=== PATIENT | female | born 1980 | race Caucasian/White ===

== ENCOUNTER 2017-06-20 14:40 | Emergency (ER) | payer BC ==
[2017-06-20 14:59] VITALS: BP 156/91; PULSE 87; RESP 16; TEMP 99
--- NOTE | 2017-06-20 15:44 | ED ---
General Adult HPI - General Chief complaint: Skin/Abscess/Foreign Body Stated complaint: rash on back Time Seen by Provider: 06/20/17 15:28 Source: patient, RN notes reviewed Mode of arrival: ambulatory Limitations: no limitations - History of Present Illness Initial comments: Patient's a 37-year-old female who presents emergency room today with chief complaint of a rash to the left side of her back that began 3 days ago. She states it is very painful and tender. She states it's worse at night when she is trying to sleep. She states she has tried some Benadryl which made her drowsy but doesn't seem to have helped with the rash. Patient does not that she feels that there is some swelling to the lymph nodes in her axilla bilaterally. Patient admits that rash seems to be wrapping around the left side of the ribs. Denies any other complaints. Patient denies any recent fever , chills, shortness of breath, chest pain, back pain, abdominal pain, nausea or vomiting, numbness or tingling, dysuria or hematuria, constipation or diarrhea, headaches or visual changes, or any other complaints. - Related Data Home Medications Medication Instructions Recorded Confirmed Cyclobenzaprine [Flexeril] 10 mg PO BID PRN 05/11/15 05/11/15 Ibuprofen [Motrin] 800 mg PO TID PRN 05/11/15 05/11/15 Previous Rx's Medication Instructions Recorded Diazepam [Valium] 5 mg PO TID #10 tab 05/11/15 HYDROcodone/APAP 5-325MG [Axtell 1 tab PO Q6HR PRN #30 tab 05/11/15 5-325] Hydrocodone/Acetaminophen [Axtell 1 each PO Q6HR PRN #12 tab 06/20/17 5-325] predniSONE 60 mg PO DAILY 5 Days tab 06/20/17 valACYclovir HCL [Valtrex] 1,000 mg PO TID #21 tablet 06/20/17 Allergies Allergy/AdvReac Type Severity Reaction Status Date / Time latex Allergy Swelling Verified 06/20/17 14:59 naproxen Allergy Anaphylaxis Verified 06/20/17 14:59 Review of Systems ROS Statement: Those systems with pertinent positive or pertinent negative responses have been documented in the HPI. ROS Other: All systems not noted in ROS Statement are negative. Past Medical History Past Medical History: No Reported History History of Any Multi-Drug Resistant Organisms: None Reported Past Surgical History: Orthopedic Surgery, Tubal Ligation Additional Past Surgical History / Comment(s): knee and neck surgery Past Psychological History: No Psychological Hx Reported Smoking Status: Current every day smoker Past Alcohol Use History: None Reported Past Drug Use History: None Reported General Exam - General Exam Comments Initial Comments: General: The patient is awake and alert, in no distress, and does not appear acutely ill. Eye: Pupils are equal, round and reactive to light, extra-ocular movements are intact. No nystagmus. There is normal conjunctiva bilaterally. No signs of icterus. Ears, nose, mouth and throat: There are moist mucous membranes and no oral lesions. Neck: The neck is supple, there is no tenderness or JVD. Cardiovascular: There is a regular rate and rhythm. No murmur, rub or gallop is appreciated. Respiratory: Lungs are clear to auscultation, respirations are non-labored, breath sounds are equal. No wheezes, stridor, rales, or rhonchi. Musculoskeletal: Normal ROM, no tenderness. Strength 5/5. Sensation intact. Pulses equal bilaterally 2+. Neurological: A&O x 3. CN II-XII intact, There are no obvious motor or sensory deficits. Coordination appears grossly intact. Speech is normal. Skin: Patient does have red raised rash beginning on the left side of the back wrapping around left side of the ribs. The areas are red and are tender on palpation. Psychiatric: Cooperative, appropriate mood & affect, normal judgment. Limitations: no limitations Course Vital Signs 06/20/17 14:57 Temperature 99.0 F Pulse Rate 87 Respiratory 16 Rate Blood Pressure 156/91 O2 Sat by Pulse 98 Oximetry Medical Decision Making - Medical Decision Making Vitals are stable here the emergency room. Was discussed with patient about possible shingles. Patient will be treated with anti-viral's and also advised use Benadryl if there is a component of ALLERGIC reaction. Patient will be placed on steroids. Patient denies follow-up the family doctor return if symptoms increase or worsen or she states understanding and is in agreement. Disposition Clinical Impression: Herpes zoster Disposition: HOME SELF-CARE Condition: Good Instructions: Shingles (ED) Additional Instructions: Please use medication as discussed. Please follow-up with family doctor in the next 2 days of symptoms have not improved. Please return to emergency room if the symptoms increase or worsen or for any other concerns. Prescriptions: Hydrocodone/Acetaminophen [Axtell 5-325] 1 each PO Q6HR PRN #12 tab PRN Reason: Pain predniSONE 60 mg PO DAILY 5 Days tab valACYclovir HCL [Valtrex] 1,000 mg PO TID #21 tablet Referrals: Ariel Atwood NPC [Primary Care Provider] - 1-2 days Time of Disposition: 15:39
== END 2017-06-20 15:52 | disposition home or self-care (01) ==
LOC: EC 14:40
DX: B02.9 Zoster without complications (principal); F17.200 Nicotine dependence, unspecified, uncomplicated; Z91.040 Latex allergy status; Z88.6 Allergy status to analgesic agent
CPT/HCPCS: 99282

== ENCOUNTER 2019-10-27 09:19 | Emergency (ER) | payer BC ==
[2019-10-27 09:26] VITALS: RESP 18
[2019-10-27] MEDS ORDERED: HYDROmorphone 0.5 MG/0.5 ML SYRINGE IVP STA (09:38)
[2019-10-27] MEDS ORDERED: ONDANSETRON 4 MG/2 ML VIAL IVP STA (09:38)
[2019-10-27] MEDS ORDERED: SODIUM CHLORIDE 0.9% 1,000 ML IV STA (09:38)
--- NOTE | 2019-10-27 09:42 | ED ---
General Adult HPI - General Chief complaint: Abdominal Pain Stated complaint: abominal pain; shoulder pain; chest hurts Time Seen by Provider: 10/27/19 09:27 Source: patient, RN notes reviewed Mode of arrival: ambulatory Limitations: no limitations - History of Present Illness Initial comments: 39-year-old female with a past medical history of tubal ligation presents to the emergency department for a chief complaint of abdominal pain. Patient states she has had left lower quadrant abdominal pain for about 3 days. States she has slight nausea associated with this. No vomiting. States that bowel movements have been normal. No fevers. Patient does admit to some right shoulder pain associated with this abdominal pain. There is a small amount of right-sided chest pain as well. States is worsened with movement. Does not worsen with exertion. No cardiac history. Patient has no other complaints at this time including shortness of breath, vomiting, headache, or visual changes. - Related Data Home Medications Medication Instructions Recorded Confirmed Ascorbic Acid [Vitamin C] 1,000 mg PO DAILY 10/27/19 10/27/19 Docusate [Colace] 100 mg PO DAILY PRN 10/27/19 10/27/19 Tylenol Ultra 1 tab PO Q4-6H PRN 10/27/19 10/27/19 Previous Rx's Medication Instructions Recorded Amoxicillin/Potassium Clav 1 tab PO Q12HR #28 tab 10/27/19 [Augmentin 875-125 Tablet] Allergies Allergy/AdvReac Type Severity Reaction Status Date / Time latex Allergy Swelling Verified 10/27/19 09:51 naproxen Allergy Anaphylaxis Verified 10/27/19 09:51 Review of Systems ROS Statement: Those systems with pertinent positive or pertinent negative responses have been documented in the HPI. ROS Other: All systems not noted in ROS Statement are negative. Past Medical History Past Medical History: No Reported History History of Any Multi-Drug Resistant Organisms: None Reported Past Surgical History: Orthopedic Surgery, Tubal Ligation Additional Past Surgical History / Comment(s): knee and neck surgery Past Psychological History: No Psychological Hx Reported Smoking Status: Former smoker Past Alcohol Use History: Rare Past Drug Use History: None Reported General Exam Limitations: no limitations General appearance: alert, in no apparent distress Head exam: Present: atraumatic, normocephalic, normal inspection Eye exam: Present: normal appearance, PERRL, EOMI. Absent: scleral icterus, conjunctival injection, periorbital swelling ENT exam: Present: normal exam, mucous membranes moist Neck exam: Present: normal inspection, full ROM. Absent: tenderness, meningismus, lymphadenopathy Respiratory exam: Present: normal lung sounds bilaterally. Absent: respiratory distress, wheezes, rales, rhonchi, stridor Cardiovascular Exam: Present: regular rate, normal rhythm, normal heart sounds. Absent: systolic murmur, diastolic murmur, rubs, gallop, clicks GI/Abdominal exam: Present: soft, normal bowel sounds. Absent: distended, tenderness, guarding, rebound, rigid Neurological exam: Present: alert Psychiatric exam: Present: normal affect, normal mood Course Vital Signs 10/27/19 10/27/19 09:22 11:35 Temperature 99.4 F Pulse Rate 97 86 Respiratory 18 18 Rate Blood Pressure 135/89 122/77 O2 Sat by Pulse 97 100 Oximetry EKG Findings - EKG Comments: EKG Findings:: Normal sinus rhythm, ventricular rate 80, KY interval 170, QTC 424 Medical Decision Making - Medical Decision Making Vitals are stable. Patient is afebrile. CBC does reveal a mild leukocytosis with a left shift. CMP generally unremarkable. Minimal transaminitis. Troponin was negative. EKG was nonischemic. CT abdomen and pelvis did show acute diverticulitis along the proximal sigmoid with moderate inflammation. No abscess or free air. moderate free fluid could be physiologic or reactive to the colonic inflammation. Discussed findings with patient. She will be started on Augmentin. She was given a dose here in the emergency room. She will follow up with GI. She'll return here for any worsening symptoms. - Lab Data Result diagrams: 10/27/19 09:48 10/27/19 09:48 Lab Results 10/27/19 10/27/19 10/27/19 Range/Units 09:48 09:48 09:48 WBC 12.9 H (3.8-10.6) k/uL RBC 4.59 (3.80-5.40) m/uL Hgb 13.4 (11.4-16.0) gm/dL Hct 41.9 (34.0-46.0) % MCV 91.1 (80.0-100.0) fL MCH 29.2 (25.0-35.0) pg MCHC 32.1 (31.0-37.0) g/dL RDW 12.7 (11.5-15.5) % Plt Count 329 (150-450) k/uL Neutrophils % 75 % Lymphocytes % 17 % Monocytes % 5 % Eosinophils % 2 % Basophils % 1 % Neutrophils # 9.6 H (1.3-7.7) k/uL Lymphocytes # 2.2 (1.0-4.8) k/uL Monocytes # 0.7 (0-1.0) k/uL Eosinophils # 0.2 (0-0.7) k/uL Basophils # 0.1 (0-0.2) k/uL Sodium (137-145) mmol/L Potassium (3.5-5.1) mmol/L Chloride (98-107) mmol/L Carbon Dioxide (22-30) mmol/L Anion Gap mmol/L BUN (7-17) mg/dL Creatinine (0.52-1.04) mg/dL Est GFR (CKD-EPI)AfAm (>60 ml/min/1.73 sqM) Est GFR (CKD-EPI)NonAf (>60 ml/min/1.73 sqM) Glucose (74-99) mg/dL Calcium (8.4-10.2) mg/dL Total Bilirubin (0.2-1.3) mg/dL AST (14-36) U/L ALT (4-34) U/L Alkaline Phosphatase (38-126) U/L Troponin I (0.000-0.034) ng/mL Total Protein (6.3-8.2) g/dL Albumin (3.5-5.0) g/dL Amylase (30-110) U/L Lipase (23-300) U/L Urine Color Yellow Urine Appearance Clear (Clear) Urine pH 6.5 (5.0-8.0) Ur Specific Vickery 1.009 (1.001-1.035) Urine Protein Negative (Negative) Urine Glucose (UA) Negative (Negative) Urine Ketones Negative (Negative) Urine Blood Negative (Negative) Urine Nitrite Negative (Negative) Urine Bilirubin Negative (Negative) Urine Urobilinogen <2.0 (<2.0) mg/dL Ur Leukocyte Esterase Negative (Negative) Urine HCG, Qual Not Detected (Not Detectd) 10/27/19 10/27/19 Range/Units 09:48 09:53 WBC (3.8-10.6) k/uL RBC (3.80-5.40) m/uL Hgb (11.4-16.0) gm/dL Hct (34.0-46.0) % MCV (80.0-100.0) fL MCH (25.0-35.0) pg MCHC (31.0-37.0) g/dL RDW (11.5-15.5) % Plt Count (150-450) k/uL Neutrophils % % Lymphocytes % % Monocytes % % Eosinophils % % Basophils % % Neutrophils # (1.3-7.7) k/uL Lymphocytes # (1.0-4.8) k/uL Monocytes # (0-1.0) k/uL Eosinophils # (0-0.7) k/uL Basophils # (0-0.2) k/uL Sodium 139 (137-145) mmol/L Potassium 4.2 (3.5-5.1) mmol/L Chloride 105 (98-107) mmol/L Carbon Dioxide 24 (22-30) mmol/L Anion Gap 10 mmol/L BUN 8 (7-17) mg/dL Creatinine 0.66 (0.52-1.04) mg/dL Est GFR (CKD-EPI)AfAm >90 (>60 ml/min/1.73 sqM) Est GFR (CKD-EPI)NonAf >90 (>60 ml/min/1.73 sqM) Glucose 100 H (74-99) mg/dL Calcium 9.1 (8.4-10.2) mg/dL Total Bilirubin 1.3 (0.2-1.3) mg/dL AST 44 H (14-36) U/L ALT 68 H (4-34) U/L Alkaline Phosphatase 128 H (38-126) U/L Troponin I <0.012 (0.000-0.034) ng/mL Total Protein 8.0 (6.3-8.2) g/dL Albumin 4.5 (3.5-5.0) g/dL Amylase 60 (30-110) U/L Lipase 98 (23-300) U/L Urine Color Urine Appearance (Clear) Urine pH (5.0-8.0) Ur Specific Vickery (1.001-1.035) Urine Protein (Negative) Urine Glucose (UA) (Negative) Urine Ketones (Negative) Urine Blood (Negative) Urine Nitrite (Negative) Urine Bilirubin (Negative) Urine Urobilinogen (<2.0) mg/dL Ur Leukocyte Esterase (Negative) Urine HCG, Qual (Not Detectd) Disposition Clinical Impression: Diverticulitis Disposition: HOME SELF-CARE Condition: Good Instructions (If sedation given, give patient instructions): Diverticulitis (ED), Diverticulitis Diet (ED) Additional Instructions: Please take antibiotic as directed. Follow up with GI in 1-2 days. Return here to the emergency room for any worsening symptoms. Prescriptions: Amoxicillin/Potassium Clav [Augmentin 875-125 Tablet] 1 tab PO Q12HR #28 tab Is patient prescribed a controlled substance at d/c from ED?: No Referrals: Areil Atwood NPC [REFERRING] - 1-2 days Zi Jiménez MD [STAFF PHYSICIAN] - 1-2 days Time of Disposition: 11:57
[2019-10-27 10:07] LABS: Basophils # (A) 0.1 k/uL (0-0.2); Basophils % (A) 1 %; Eosinophils # (A) 0.2 k/uL (0-0.7); Eosinophils % (A) 2 %; HCT 41.9 % (34.0-46.0); HGB 13.4 gm/dL (11.4-16.0); Lymphocytes # (A) 2.2 k/uL (1.0-4.8); Lymphocytes % (A) 17 %; MCH 29.2 pg (25.0-35.0); MCHC 32.1 g/dL (31.0-37.0); MCV 91.1 fL (80.0-100.0); Mean Platelet Volume 7.4; Monocytes # (A) 0.7 k/uL (0-1.0); Monocytes % (A) 5 %; Neutrophils # (A) 9.6 k/uL (1.3-7.7); Neutrophils % (A) 75 %; Platelet Count 329 k/uL (150-450); RBC 4.59 m/uL (3.80-5.40); RDW 12.7 % (11.5-15.5); WBC 12.9 k/uL (3.8-10.6)
[2019-10-27 10:17] LABS: Appearance,Urine Clear (Clear); Bilirubin,Urine Negative (Negative); Blood,Urine Negative (Negative); Color,Urine Yellow; Glucose,Urine (UA) Negative (Negative); Ketones,Urine Negative (Negative); Leukocyte Esterase,Urine Negative (Negative); Nitrite,Urine Negative (Negative); PH, Urine 6.5 (5.0-8.0); Protein,Urine Negative (Negative); Specific Gravity,Urine 1.009 (1.001-1.035); Urobilinogen,Urine <2.0 mg/dL (<2.0)
[2019-10-27 10:22] LABS: ALT 68 U/L (4-34); AST 44 U/L (14-36); African American GFR (CKD) >90 (>60 ml/min/1.73 sqM); Albumin 4.5 g/dL (3.5-5.0); Alkaline Phosphatase 128 U/L (38-126); Amylase 60 U/L (30-110); Anion Gap 10 mmol/L; Blood Urea Nitrogen 8 mg/dL (7-17); Calcium 9.1 mg/dL (8.4-10.2); Carbon Dioxide 24 mmol/L (22-30); Chloride 105 mmol/L (98-107); Glucose 100 mg/dL (74-99); Lipase 98 U/L (23-300); Non-African American GFR(CKD) >90 (>60 ml/min/1.73 sqM); Potassium 4.2 mmol/L (3.5-5.1); Sodium 139 mmol/L (137-145); Total Bilirubin 1.3 mg/dL (0.2-1.3)
--- NOTE | 2019-10-27 11:18 | CT ---
EXAMINATION TYPE: CT abdomen pelvis w con DATE OF EXAM: 10/27/2019 COMPARISON: NONE HISTORY: 39-year-old female left lower quadrant pain TECHNIQUE: Contiguous axial scanning of the abdomen and pelvis following administration of 100 ml Iso ramy 300 IV contrast. Delayed images through the kidneys and coronal/sagittal reconstructions perform ed. CT DLP: 1145.5 mGycm Automated exposure control for dose reduction was used. FINDINGS: LUNG BASES: Prominent 8 mm right-sided pericardiac lymph node nonspecific. Otherwise, no significant abnormality is appreciated. LIVER/GB: Liver mildly enlarged at 19.6 cm. Portal venous system is patent. No biliary ductal dilatat ion. Gallbladder within normal limits. PANCREAS: No significant abnormality is seen. SPLEEN: No significant abnormality is seen. ADRENALS: No significant abnormality is seen. KIDNEYS: 5 mm right renal calculus. Symmetric uptake and excretion of contrast from both kidneys. No hydronephrosis. LYMPH NODES: Scattered nonenlarged mesenteric lymph nodes. Small fatty umbilical hernia. BOWEL: Scattered prominent small bowel loops in the left side of the abdomen measuring up to 2.5 cm. No abnormally dilated small bowel or free air. Generalized colonic diverticulosis. There is focal mo derate wall thickening and surrounding inflammatory fat stranding along the proximal sigmoid. PELVIS: Moderate cul-de-sac free fluid. Uterus anteverted. Both ovaries are visualized. No pelvic lym phadenopathy seen. BONES: No osseous destructive process. IMPRESSION: 1. GENERALIZED COLONIC DIVERTICULOSIS. EXAM POSITIVE FOR ACUTE DIVERTICULITIS ALONG THE PROXIMAL SIGM OID WITH MODERATE INFLAMMATION. NO ABSCESS OR FREE AIR. 2. MODERATE CUL-DE-SAC FREE FLUID COULD BE PHYSIOLOGIC OR COULD BE REACTIVE TO THE COLONIC INFLAMMATI ON. 3. NONOBSTRUCTIVE 5 MM RIGHT RENAL CALCULUS.
[2019-10-27] MEDS ORDERED: AMOXIC-POT CLAV 875MG STARTER PACK 2 TAB BTL PO STA (11:40)
[2019-10-27 12:21] VITALS: BP 120/68; PULSE 82; TEMP 98.9
== END 2019-10-27 12:17 | disposition home or self-care (01) ==
LOC: EC 09:19
DX: K57.32 Diverticulitis of large intestine without perforation or abscess without bleeding (principal); D72.829 Elevated white blood cell count, unspecified; R74.0 Nonspecific elevation of levels of transaminase and lactic acid dehydrogenase [LDH]; Z91.040 Latex allergy status; Z88.6 Allergy status to analgesic agent; Z98.51 Tubal ligation status; Z87.891 Personal history of nicotine dependence
CPT/HCPCS: 36415; 93005; 80053; 82150; 83690; 84484; 85025; 81003; 81025; 74177; 96374; 96375; 96361; 99284; J2405; J1170; Q9967

== ENCOUNTER → 2022-04-27 | Day surgery (SDC) | payer BC, OTHER ==
[~2022-04-27] MED LIST: HYDROcodone/APAP 5-325MG 1 EACH TAB PO PRN; diazePAM 5 MG TAB PO STA
[2022-04-27 08:23] VITALS: RESP 16; TEMP 98
--- NOTE | 2022-04-27 10:49 | CT ---
EXAMINATION TYPE: CT lumbar spine w con DATE OF EXAM: 04/27/2022 COMPARISON: None. HISTORY: Intractable back pain, post myelogram CT DLP: 683.20 mGycm Automated exposure control for dose reduction was used. CONTRAST: CT scan of the lumbar is performed with attempted intrathecal injection of contrast, patient injected with 10 ml of Isovue M200. Enhanced CT of the lumbar spine was performed. Bone and soft tissue window settings are submitted as well as coronal and sagittal reconstructions. Despite several attempts repeated epidural injections of intrathecal contrast were all that were acqu ired despite attempts at several levels. This makes evaluation suboptimal. Conus medullaris and lumbo sacral nerves cannot be successfully evaluated on this exam. There are 5 lumbar-type vertebra. There is levoconvex scoliosis centered near the thoracolumbar junct ion. Vertebral body heights and disc space heights are maintained. No significant spurring is seen. Axial images at T12-L1 level appear within normal limits. Axial images at L1-L2 level show small right paracentral disc protrusion effacing right anterior epid ural space. Spinal canal contour maintained. Axial images at L2-L3 and L3-L4 levels appear within normal limits. Axial images at L4-L5 level and mild to moderate broad-based posterior disc protrusion effacing anter ior epidural fat with minimal indentation along the anterior aspect of the spinal canal at this level . Mild facet arthropathy bilaterally. There is mild to moderate left greater than right anterior infe rior neural foraminal narrowing. Axial images at L5-S1 level show mild facet arthropathy bilaterally. Excretion of contrast noted in the bilateral kidneys. Paraspinal muscle bulk is maintained. There is partial visualization of 3.0 cm round hypodense lesion right pelvis presumed thin-walled ovarian cyst axial image 93. IMPRESSION: Suboptimal study . Mild multilevel degenerative changes greatest at L4-L5 level as detail ed above.
--- NOTE | 2022-04-27 11:03 | CT ---
EXAMINATION TYPE: CT cervical spine w con DATE OF EXAM: 04/27/2022 COMPARISON: Prior cervical spine 2014. HISTORY: Chronic neck pain, post myelogram CT DLP: 1242.80 mGycm. Automated Exposure Control for Dose Reduction was Utilized. TECHNIQUE: CT scan of the cervical spine is obtained with attempted intrathecal IV contrast injectio n, axial images are obtained, sagittal and coronal reformatted images are also reviewed. Patient give n 10 cc of Isovue-M 200. FINDINGS: Suboptimal study as on successful intrathecal injection of contrast. Epidural injection not ed on CT lumbar spine images. There is loss of normal cervical curvature. There is anterior fusion pl ate at C5-C6 level with metallic disc material and anterior fusion plate at C6-C7 level with metalli c disc material. Some ossific fusion at these levels is seen. There is spinal stimulator device termi nating posterior upper cervical spine epidural space. Vertebral body heights and disc space heights a re maintained above and below surgical levels. Craniocervical junction appears within normal limits. Review of axial images shows no large disc herniations. The bilateral neural foramina are grossly pat ent throughout the cervical spine. No suspicious incidental findings are seen. IMPRESSION: Suboptimal study. Postsurgical change C5-C7 level with some loss of normal cervical curva ture. No large disc herniations are evident.
[2022-04-27 12:01] VITALS: BP 158/93; PULSE 60
--- NOTE | 2022-04-28 06:28 | FL ---
EXAMINATION TYPE: FL myelogram 2 or more regions DATE OF EXAM: 04/27/2022 COMPARISON: CT abdomen and pelvis October 27, 2019 HISTORY: Neck and low back pain. Technique: Fluoroscopic assisted attempted lumbar myelogram for subsequent CT. A total of 4 minutes 1 1 seconds fluoroscopic time utilized. There are 8 spot images obtained. Findings: Informed consent was obtained and all the patient's questions were answered. Standard sterile techni que was utilized as well as appropriate local anesthesia 1% Lidocaine. Patient placed in prone posit ion. Old CT is reviewed. There appear to be widely patent spinal canal and several levels of access b etween the spinous process. 3 different attempts were made With Poor Return of CSF. Contrast Injectio n showed epidural location on several attempts. There was some return of blood-tinged CSF and one att empt. Finally at L2-L3 attempt there appear to be improved spread of contrast on injection. Approxima tely 10 cc of Isovue-M 200 was injected. There is more peripheral location than typical, I thought th is was due to the more dilute contrast but was confirmed due to again epidural location. This was co nfirmed on subsequent CT. After contrast injection needle is withdrawn. There is poor advancement of contrast into the cervical spine due to table malfunction. Spinal stimulator device is noted. Patient tolerated attempted procedure well without any immediate complication. [facility] after procedure and then discharged home in stable and satisfactory condition. IMPRESSION: As above. Unsuccessful attempted myelogram noted.
== END ==
LOC: RADPROMAIN 07:50
PROVIDERS: ATTEND Neurological Surgery
DX: M47.816 Spondylosis without myelopathy or radiculopathy, lumbar region (principal); M54.2 Cervicalgia; G89.29 Other chronic pain
CPT/HCPCS: 62305; 72126; 72132; J2001; Q9966

== ENCOUNTER 2024-03-20 08:11 | Day surgery (SDC) | payer OTHER ==
[2024-03-20] MEDS: diazePAM 5 MG TAB PO STA (08:46)
[2024-03-20 09:32] VITALS: RESP 18; TEMP 98
--- NOTE | 2024-03-20 10:22 | FL ---
EXAMINATION TYPE: FL myelogram 2 or more regions DATE OF EXAM: 03/20/2024 COMPARISON: NONE HISTORY: Pain Informed consent was obtained and all the patient's questions were answered. The L3-L4 level was loc alized under fluoroscopy. Standard sterile technique was utilized as well as appropriate local anest hesia 1% Lidocaine and sodium bicarbonate. Spinal needle was introduced into the thecal sac under fl uoroscopic guidance and 7 mL's of Isovue 200 was injected. The patient tolerated the procedure well and left the department in stable condition. All elements of maximal barrier and sterile technique u tilized. Contrast column was manipulated cervical spine with leaving portions of the contrast in the lumbar spine. CT myelography is to follow. 2 minutes and 25 seconds of fluoroscopy time. 2 images pat bmitted. IMPRESSION: Successful lumbar myelogram prior to CT scan. [facility], , 03/20/2024 10:20 AM
--- NOTE | 2024-03-20 10:44 | CT ---
EXAMINATION TYPE: CT cervical spine w con CT DLP: 649.20 mGycm, Automated exposure control for dose reduction was used. DATE OF EXAM: 03/20/2024 10:31 AM COMPARISON: CT cervical spine 04/27/2022, fluoroscopic myelogram 03/20/2024, MR cervical spine 5. CLINICAL INDICATION:Female, 44 years old with history of MM48.07 cervical pain; [facility], Cervical myelogr am TECHNIQUE: Axial CT images from the skull base to the inferior aspect of T2 we obtained after fluoros copic myelogram was performed of the same date. Approximately 7 mL Isovue-200 was injected into the t hecal sac in the lumbar region. Coronal and sagittal reformatted images were also reviewed. FINDINGS: Fracture: None. Osseous structures: Postsurgical changes are again ACDF C5-C7 with disc spacers. Ossific fusion at th silverio levels. Hardware is stable. Vertebral alignment: No spondylolisthesis. Straightening of the normal cervical lordosis. Spinal canal/Neural Foramina: Stable position of stimulator lead terminating at the C1-C2 level withi n the posterior spinal canal. No significant neural foraminal or central canal stenosis at C2-C3, or C3-C4. Tiny central disc protrusion with mild effacement of anterior thecal sac at C4-C5 (series 3, i mage 59). No significant neural foraminal stenosis at this level. Postsurgical changes are ACDF C5-C7 which limits evaluation. No gross evidence of significant central canal stenosis at these levels. No significant neural foraminal stenosis at any levels. No significant central canal stenosis or neural foraminal stenosis at C7-T1. Neck soft tissues: Prevertebral soft tissues are within normal limits. Other: The airway is patent. Right upper lobe stable 3 mm pulmonary nodule (series 4, image 101). IMPRESSION: 1. No evidence of acute cervical spine fracture. 2. Postsurgical changes from ACDF C5-C7. Hardware appears intact and stable. 3. Small central disc protrusion at C4-C5 with mild effacement of anterior thecal sac. 4. Stable right upper lobe 3 mm pulmonary nodule. In a low-risk patient, no follow-up is recommended. In a high-risk patient consider options CT chest in 12 months. [facility], , 03/20/2024 10:42 AM
--- NOTE | 2024-03-20 10:50 | CT ---
EXAMINATION TYPE: CT lumbar spine w con CT DLP: 557.60 mGycm, Automated exposure control for dose reduction was used. DATE OF EXAM: 03/20/2024 10:31 AM COMPARISON: Fluoroscopic myelogram 03/20/2024, CT lumbar spine 04/27/2022. CLINICAL INDICATION:Female, 44 years old with history of M48.02 lumbar pain; PHH, Lumbar myelogram TECHNIQUE: Multiple axial images were obtained from the midportion of T11 through the sacroiliac harmeet nts. Soft tissue and bone windows in coronal and sagittal planes were obtained and reviewed. Contrast used:7 mL of Isovue M200 with IV Contrast. FINDINGS: Alignment: There are 5 lumbar type vertebral bodies. No spondylolisthesis. Minimal levoconvex scolios is centered near the thoracolumbar junction. Bone: No evidence of fracture is identified. Postsurgical change with transverse oriented screw thro ugh the right SI joint. Discs: T12-L1: No spinal canal or neural foraminal stenosis is identified. L1-L2: No spinal canal or neural foraminal stenosis is identified. L2-L3: No spinal canal or neural foraminal stenosis is identified. L3-L4: No spinal canal or neural foraminal stenosis is identified. L4-L5: Broad-based disc bulge with mild effacement of the anterior thecal sac. Mild bilateral facet a rthropathy. Moderate bilateral neural foraminal stenosis. L5-S1: Broad-based disc bulge without evidence of significant central canal stenosis. Mild bilateral facet arthropathy. Mild bilateral neural foraminal stenosis. Other: Right gluteal generator power pack with lead coursing superiorly along the right posterior jossue k soft tissues. Cholelithiasis. Nonobstructive right renal 7 mm calculus. Scattered colonic diverticu losis without visualized acute diverticulitis. IMPRESSION: 1. No evidence for acute spinal fracture. 2. 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 This is again most pronounced at L4-L5 as detailed above. [facility], , 03/20/2024 10:48 AM
[2024-03-20 13:56] VITALS: BP 114/72; PULSE 72
== END 2024-03-20 13:56 | disposition home or self-care (01) ==
LOC: RADPROMAIN 08:11
PROVIDERS: ATTEND Neurological Surgery
DX: M48.02 Spinal stenosis, cervical region (principal); M48.07 Spinal stenosis, lumbosacral region; R91.1 Solitary pulmonary nodule; Z98.1 Arthrodesis status
CPT/HCPCS: 62305; 72126; 72132; Q9966